=== PATIENT | male | born 1980 | race Caucasian/White ===

== ENCOUNTER 2018-05-06 11:36 | Emergency (ER) | payer OTHER ==
[2018-05-06 12:15] VITALS: TEMP 98.5
--- NOTE | 2018-05-06 13:08 | C.PDOC ---
History Of Present Illness 38-year-old male presents to the ED for evaluation after sustaining a fall today. Patient states he slipped in the shower, injuring his right rib area during the fall. He continues to have pain with deep inspiration. Denies any head injury, LOC, dizziness, SOB, numbness, weakness, or other injuries. - HPI Time Seen by Provider: 05/06/18 12:41 Chief Complaint (Nursing): Trauma History Per: Patient History/Exam Limitations: no limitations Onset/Duration Of Symptoms: Mins Injury Occurred (Timing): Just Before Arrival Past Medical History Reviewed: Historical Data, Nursing Documentation, Vital Signs Vital Signs: Last Vital Signs Temp 98.5 F 05/06/18 14:13 Pulse 82 05/06/18 14:13 Resp 18 05/06/18 14:13 BP 130/82 05/06/18 14:13 Pulse Ox 100 05/06/18 14:13 - Medical History PMH: No Chronic Diseases Surgical History: No Surg Hx Family History: States: No Known Family Hx - Social History Hx Alcohol Use: No Hx Substance Use: No - Immunization History Hx Tetanus Toxoid Vaccination: No Hx Influenza Vaccination: No Hx Pneumococcal Vaccination: No Review Of Systems Except As Marked, All Systems Reviewed And Found Negative. Cardiovascular: Positive for: Other (Right rib pain) Respiratory: Negative for: Shortness of Breath Neurological: Negative for: Weakness, Numbness, Dizziness, Other (head trauma) Physical Exam - Physical Exam Appears: Non-toxic, No Acute Distress Skin: Normal Color, Warm, Dry Head: Atraumatic, Normacephalic Eye(s): bilateral: Normal Inspection, PERRL, EOMI Nose: Normal Oral Mucosa: Moist Neck: Normal ROM, No Midline Cervical Tenderness, Supple Chest: Tenderness (to right lateral anterior ribs), Ecchymosis (of the right lateral anterior ribs) Cardiovascular: Rhythm Regular Respiratory: Normal Breath Sounds, No Accessory Muscle Use, Other (No acute respiratory distress) Gastrointestinal/Abdominal: Soft, No Tenderness, No Distention Back: Normal Inspection, No Vertebral Tenderness Extremity: Bilateral: Atraumatic, Normal Color And Temperature, Normal ROM Pulses: Left Radial: Normal, Right Radial: Normal Neurological/Psych: Oriented x3, Normal Speech, Other (No focal deficits) Gait: Steady ED Course And Treatment O2 Sat by Pulse Oximetry: 96 (RA) Pulse Ox Interpretation: Normal - Radiology CXR: Interpreted by Hi CXR Interpretation: Yes: No Acute Disease - Other Rad CXR X-Ray: Read By Radiologist Interpretation: FINDINGS: LUNGS: Bibasilar atelectasis. No focal consolidation. PLEURA: No significant pleural effusion identified. No pneumothorax apparent. CARDIOVASCULAR: Normal. OSSEOUS STRUCTURES: No significant abnormalities. VISUALIZED UPPER ABDOMEN: Normal. OTHER FINDINGS: None. IMPRESSION: No active disease. - CT Scan/US CT Chest Other Rad Studies (CT/US): Read By Radiologist, Radiology Report Reviewed CT/US Interpretation: FINDINGS: LUNGS: Bibasilar subsegmental atelectasis. Visualized airway clear. MEDIASTINUM: Unremarkable thoracic aorta. No aneurysm. Normal sized heart. Main pulmonary artery unremarkable. No vascular congestion. No lymphadenopathy. PLEURA: Left posterior pleural thickening. No pneumothorax. BONES: Minimally displaced fracture of the left lateral 9th rib. No destructive lesion. UPPER ABDOMEN: Grossly unremarkable. OTHER FINDINGS: None. IMPRESSION: Minimally displaced fracture of the left lateral 9th rib. No pneumothorax, hemothorax or evidence of pulmonary contusion/ laceration. Bibasilar subsegmental atelectasis. Progress Note: Patient treated with motrin 600 mg PO. On re-evaluation lungs clear Reassessment Condition: Improved Medical Decision Making Medical Decision Making: Initial Plan: --Chest x-ray --CT Chest w/o contrast --Motrin 600 mg PO Counseled patient regarding diagnostic results and diagnosis. Patient is stable for d/c home. Advised to follow up with PMD for further evaluation. Disposition Counseled Patient/Family Regarding: Studies Performed, Diagnosis, Need For Followup, Rx Given - Disposition [facility] Disposition: HOME/ ROUTINE Disposition Time: 14:15 Condition: STABLE Additional Instructions: Take deep breaths every 2 hrs Prescriptions: Naproxen [Naprosyn] 1 tab PO BID PRN #25 tab PRN Reason: Pain Instructions: Rib Fractures in Adults Forms: [facility] (Lithuanian) - POA Present On Arrival: None - Clinical Impression Clinical Impression: Rib fracture - PA / HEAT TREATER / Resident Statement MD/DO has reviewed & agrees with the documentation as recorded. - Scribe Statement The provider has reviewed the documentation as recorded by the Scribe (Fallon Garduno) All medical record entries made by the Scribe were at my direction and personally dictated by me. I have reviewed the chart and agree that the record accurately reflects my personal performance of the history, physical exam, medical decision making, and the department course for this patient. I have also personally directed, reviewed, and agree with the discharge instructions and disposition.
--- NOTE | 2018-05-06 13:18 | RAD ---
HISTORY: rib pain COMPARISON: No prior TECHNIQUE: Chest PA and lateral FINDINGS: LUNGS: Bibasilar atelectasis. No focal consolidation. PLEURA: No significant pleural effusion identified. No pneumothorax apparent. CARDIOVASCULAR: Normal. OSSEOUS STRUCTURES: No significant abnormalities. VISUALIZED UPPER ABDOMEN: Normal. OTHER FINDINGS: None. IMPRESSION: No active disease.
--- NOTE | 2018-05-06 13:59 | CT ---
PROCEDURE: CT Chest without contrast HISTORY: rib pain COMPARISON: None. TECHNIQUE: Contiguous axial images were obtained through the chest without intravenous contrast enhancement. Sagittal and coronal reconstructions were performed. Radiation dose (DLP): 506.6 mGy-cm. This CT exam was performed using one or more of the following dose reduction techniques: Automated exposure control, adjustment of the mA and/or kV according to patient size, and/or use of iterative reconstruction technique. FINDINGS: LUNGS: Bibasilar subsegmental atelectasis. Visualized airway clear. MEDIASTINUM: Unremarkable thoracic aorta. No aneurysm. Normal sized heart. Main pulmonary artery unremarkable. No vascular congestion. No lymphadenopathy. PLEURA: Left posterior pleural thickening. No pneumothorax. BONES: Minimally displaced fracture of the left lateral 9th rib. No destructive lesion. UPPER ABDOMEN: Grossly unremarkable. OTHER FINDINGS: None. IMPRESSION: Minimally displaced fracture of the left lateral 9th rib. No pneumothorax, hemothorax or evidence of pulmonary contusion/laceration. Bibasilar subsegmental atelectasis.
[2018-05-06 14:13] VITALS: BP 130/82; PULSE 82; RESP 18
[2018-05-06 14:36] VITALS: O2SAT 96
== END 2018-05-06 14:13 | disposition home or self-care (01) ==
LOC: C.ER 11:36
DX: S22.32XA Fracture of one rib, left side, initial encounter for closed fracture (principal); W18.2XXA Fall in (into) shower or empty bathtub, initial encounter; Y93.E1 Activity, personal bathing and showering